=== PATIENT | male | born 1980 | race Caucasian/White ===

== ENCOUNTER 2020-09-23 08:54 | Inpatient (IN) ==
[2020-09-23] MEDS ORDERED: Famotidine 20 MG/2 ML VIAL IVP ONE (08:59)
[2020-09-23] MEDS ORDERED: Acetaminophen IV 1,000 MG/100 ML BAG IVPB ONE (09:00)
[2020-09-23] MEDS ORDERED: Gabapentin 300 MG CAPSULE PO ONE (09:00)
[2020-09-23] MEDS ORDERED: CeFAZolin Syr 2,000MG/20 ML 2,000 MG/20 ML SYRINGE IVPB ONE (09:20)
[2020-09-23] MEDS ORDERED: *HR* OxyCODONE Immed Rel 5 MG TABLET PO PRN (09:26)
[2020-09-23] MEDS ORDERED: Ondansetron 4 MG/2 ML VIAL IVP PRN ×2 (09:26→14:24)
[2020-09-23] MEDS ORDERED: Ringers Solution, Lactated 1,000 ML IVC SCH (09:30)
[2020-09-23] MEDS ORDERED: *HR* Midazolam HCl 2 MG/2 ML VIAL ONE (10:01)
[2020-09-23] MEDS ORDERED: *HR* Succinylcholine 200 MG/10 ML VIAL IVP ONE (10:01)
[2020-09-23] MEDS ORDERED: Lidocaine -MPF 2% 2 ML VIAL ONE (10:01)
[2020-09-23] MEDS ORDERED: *HR* Rocuronium Bromide 50 MG/5 ML VIAL ONE ×2 (10:01→11:21)
[2020-09-23] MEDS ORDERED: *HR* FentaNYL (PF) 100 MCG/2 ML VIAL ONE (10:01)
[2020-09-23] MEDS ORDERED: Sugammadex Sodium 200 MG/2 ML VIAL IV ONE (10:01)
[2020-09-23] MEDS ORDERED: Ondansetron 4 MG/2 ML VIAL ONE (10:01)
[2020-09-23] MEDS ORDERED: *HR* Propofol 200 MG/20 ML VIAL IVP ONE (10:02)
[2020-09-23] MEDS ORDERED: Lidocaine HCL 4 ML Topical Solution (Laryng-O-Jet Kit Sterile Pak) TP ONE (11:04)
[2020-09-23] MEDS ORDERED: Ketorolac 30 MG/ML VIAL ONE (12:30)
[2020-09-23] MEDS ORDERED: *HR* HYDROMORPHONE 2 MG/ML VIAL ONE (12:38)
[2020-09-23] MEDS: *HR* HYDROmorphone PF 0.5 MG/0.5 ML SYRINGE IVP PRN ×4 (12:57→13:22)
[2020-09-23] MEDS ORDERED: *HR* HYDROmorphone PF 0.5 MG/0.5 ML SYRINGE IVP PRN (13:36)
[2020-09-23] MEDS ORDERED: *HR* Midazolam HCl 2 MG/2 ML VIAL IVP ONE (13:51)
[2020-09-23] MEDS ORDERED: Naloxone 0.4 MG/ML INJ IVP PRN (14:24)
[2020-09-23] MEDS ORDERED: *HR* HYDROcodone/Acet 5/325 mg TABLET PO PRN (14:24)
[2020-09-23] MEDS ORDERED: Melatonin 3 MG TABLET PO PRN (14:24)
[2020-09-23] MEDS: *HR* HYDROmorphone 2 MG/ML SYRINGE IVP PRN ×5 (14:44→23:53)
[2020-09-23] MEDS: Gabapentin 400 MG CAPSULE PO SCH ×2 (14:46→20:15)
[2020-09-23] MEDS: *HR* HYDROcodone/Acet 10/325 mg TABLET PO PRN ×3 (14:46→23:54)
[2020-09-23] MEDS: 0.9 % Sodium Chloride 1,000 ML IVC SCH (14:51)
[2020-09-23] MEDS: ACAMPROSATE CALCIUM 333 MG PO SCH (15:07)
[2020-09-23] MEDS: Ipratropium/Albuterol Neb 3 ML IH SCH ×3 (15:38→23:23)
[2020-09-23] MEDS: *HR* Heparin 5,000 UNIT/ML VIAL SQ SCH (16:47)
[2020-09-23] MEDS: Ketorolac 15 MG/ML VIAL IVP SCH (16:47)
[2020-09-23] MEDS ORDERED: Topiramate 100 MG TABLET PO SCH (21:00)
[2020-09-24] MEDS: ACAMPROSATE CALCIUM 333 MG PO SCH ×2 (00:05→08:01)
[2020-09-24] MEDS: *HR* Heparin 5,000 UNIT/ML VIAL SQ SCH ×2 (00:07→05:24)
[2020-09-24] MEDS: Famotidine 20 MG TABLET PO SCH ×2 (00:14→05:27)
[2020-09-24] MEDS: Sennosides/Docusate Sodium TABLET PO SCH ×2 (00:15→08:01)
[2020-09-24] MEDS: Ketorolac 15 MG/ML VIAL IVP SCH ×2 (00:15→05:27)
[2020-09-24] MEDS: *HR* HYDROmorphone 2 MG/ML SYRINGE IVP PRN ×3 (02:00→08:04)
[2020-09-24] MEDS: Ipratropium/Albuterol Neb 3 ML IH SCH ×2 (03:36→07:20)
[2020-09-24 03:49] LABS: Hematocrit 41.8 % (37.5-50.1); Mean Corpuscular HGB Conc 31.1 g/dL (31.6-35.5); Mean Corpuscular Hemoglobin 26.2 pg (28.0-33.3); Mean Corpuscular Volume 84.3 fL (83.0-100.0); Platelet Count 296 K/mcL (140-400); Red Blood Count 4.96 M/mcL (4.19-5.50); Red Cell Distribution Width 14.5 % (11.5-14.5)
[2020-09-24 03:51] LABS: White Blood Count 12.8 K/mcL (4.3-11.1)
[2020-09-24 04:06] LABS: % Iron Saturation 10 % (20-55); BUN/Creatinine Ratio 17 (6-26); Blood Urea Nitrogen 14 mg/dL (6-20); Calcium 9.1 mg/dL (8.6-10.3); Carbon Dioxide 28 mEq/L (23-29); Chloride 102 mEq/L (98-107); Glucose 135 mg/dL (70-105); Iron 35 mcg/dL (65-175); Magnesium 2.3 mg/dL (1.6-2.6); Osmolality,Calculated 289 (280-300); Potassium 4.4 mEq/L (3.5-5.1); Sodium 138 mEq/L (136-145); Transferrin 252 mg/dL (203-362); eGFR For African Americans > 60 (> 60); eGFR For Non-African Americans > 60 (> 60)
[2020-09-24] MEDS: 0.9 % Sodium Chloride 1,000 ML IVC SCH (05:21)
[2020-09-24] MEDS: *HR* HYDROcodone/Acet 10/325 mg TABLET PO PRN (05:24)
[2020-09-24 07:11] VITALS: BP 120/74
[2020-09-24] MEDS: Gabapentin 400 MG CAPSULE PO SCH (08:01)
[2020-09-24] MEDS ORDERED: DilTIAZem CD (24hr) 120 MG CAP.ER.24H PO SCH (09:00)
[2020-09-24] MEDS ORDERED: BuPROPion XL (24 HR) 150 MG TABLET PO SCH (09:00)
== END 2020-09-24 09:35 | disposition home or self-care (01) | DRG 804 ==
LOC: SAMDAY 08:54 → 2NNU 14:22
PROVIDERS: ADMIT Thoracic Surgery (Cardiothoracic Vascular Surgery); ATTEND Thoracic Surgery (Cardiothoracic Vascular Surgery)